=== PATIENT | female | born 1990 | race Caucasian/White ===

== ENCOUNTER 2022-12-17 12:46 | Outpatient (CLI) | payer BC, SELFPAY ==
--- NOTE | ~2022-12-17 | US_ITS ---
EXAMINATION: US OB /maternal detail DATE: 12/17/2022 13:29 INDICATION: Second trimester anatomic survey TECHNIQUE: Real-time ultrasound of the pelvis was performed. COMPARISON: None. FINDINGS: There is a single living fetus in vertex presentation. The placenta is anterior and 4.3 cm from the i nternal cervical os. The cervical length is 3.1 cm. heart rate is 54 beats per minute (bpm). F etal cardiac activity and movement are noted. The amniotic fluid index is subjectively normal. The outflow tracts the heart and intracranial anatomy are not well visualized. The following an atomy was identified as normal: 4 chamber heart 3 vessel cord cord insertion kidneys urinary bladder stomach spine diaphragm ventricles cisterna magna cerebellum The following biometric data were obtained: Biparietal diameter (BPD): 4.9 cm; head circumference (HC): 17.9 cm; abdominal circumference (AC): 15 .7 cm; femur length (FL): 3.7 cm. These measurements are concordant. Estimated weight is 406 g +/- 61 g, which correlates with the 97th percentile when 05/06/2023 is used as estimated date of delivery. As single measurements, these parameters are each equal to the following estimated gestational ages w ith ranges of +/- 2 standard deviations: BPD: 20 weeks 5 days ( 19 weeks 0 days - 22 weeks 3 days). HC: 20 weeks 3 days ( 18 weeks 6 days - 21 weeks 6 days). AC: 20 weeks 6 days ( 18 weeks 5 days - 22 weeks 6 days). FL: 21 weeks 6 days ( 20 weeks 1 days - 23 weeks 5 days). estimated gestational age based solely on measurements from this exam is 21 weeks 0 days +/- 1 weeks 3 days. IMPRESSION: 1. Single living fetus in vertex presentation. 2. Estimated weight is 406 g +/- 61 g, which correlates with the 97th percentile when 05/06/2023 is used as estimated date of delivery. 3. Outflow tracts of the heart and intracranial anatomy not well visualized. Reviewed, dictated and finalized at location F. ER DISTILLERY IMPRESSION: 1. Single living fetus in vertex presentation. 2. Estimated weight is 406 g +/- 61 g, which correlates with the 97th per centile when 05/06/2023 is used as estimated date of delivery. 3. Outflow tracts of the heart and intracranial anatomy not well visualized.
== END 2022-12-17 12:47 ==
PROVIDERS: PCP Family Medicine; Visit Provider Obstetrics & Gynecology Gynecology
DX: Z36.9 Encounter for antenatal screening, unspecified (principal); Z3A.21 21 weeks gestation of pregnancy
CPT/HCPCS: 76805

== ENCOUNTER 2023-01-27 09:41 | Outpatient (CLI) | payer BC, SELFPAY ==
--- NOTE | ~2023-01-27 | US_ITS ---
EXAMINATION: US OB follow up DATE: 01/27/2023 10:27 INDICATION: Incomplete anatomic survey. TECHNIQUE: Real-time ultrasound of the pelvis was performed. COMPARISON: Ultrasound 12/17/2022 FINDINGS: There is a single living fetus in breech presentation. The placenta is anterior, 7.1 cm from the cer vix. heart rate is 133 beats per minute (bpm). The amniotic fluid volume is subjectively normal . The following biometric data were obtained: Biparietal diameter (BPD): 6.7 cm; head circumference (HC): 24.7 cm; abdominal circumference (AC): 22 .6 cm; femur length (FL): 4.9 cm. These measurements are concordant. Estimated weight is 975 g +/- 146 g, which correlates with the 33rd percentile when 04/29/23 is u sed as estimated date of delivery. As single measurements, these parameters are each equal to the following estimated gestational ages: BPD: 26 weeks 6 days. HC: 26 weeks 5 days. AC: 27 weeks 0 days. FL: 26 weeks 2 days. estimated gestational age based solely on measurements from this exam is 26 weeks 5 days +/- 1 weeks 6 days. The cerebral ventricles, cerebellum, cisterna magna, and heart are normal. IMPRESSION: 1. Single living fetus in breech presentation. 2. Estimated weight is 975 g +/- 146 g, which correlates with the 33rd percentile when 04/29/23 is used as estimated date of delivery. 3. Normal anatomic survey of the head and heart. Reviewed, dictated and finalized at location A. ING ELEMENT WINDER IMPRESSION: 1. Single living fetus in breech presentation. 2. Estimated weight is 975 g +/- 146 g, which correlates with the 33rd p ercentile when 04/29/23 is used as estimated date of delivery. 3. Normal anatomic survey of the head and heart.
== END 2023-01-27 09:42 ==
LOC: MICIMG 09:42
PROVIDERS: PCP Family Medicine; Visit Provider Obstetrics & Gynecology Gynecology
DX: Z36.9 Encounter for antenatal screening, unspecified (principal); Z3A.26 26 weeks gestation of pregnancy
CPT/HCPCS: 76816

== ENCOUNTER 2023-02-23 11:06 | Outpatient (CLI) | payer BC, SELFPAY ==
[2023-02-23] VITALS (7 sets, daily range): BP systolic 91–113; BP diastolic 33–81; PULSE 78–88; RESP 18; TEMP 37.1
[2023-02-23 11:46] LABS: Appearance Urine Cloudy (Clear); Bacteria Urine Rare /hpf; Bilirubin Urine Negative (Negative); Blood Urine Negative (Negative); Color Urine Yellow (Yellow); Glucose Urine UA Negative (Negative); Ketones Urine Negative (Negative); Leukocyte Esterase Ur 1+ LEU/UL (NEGATIVE); Nitrate Urine Negative (Negative); Non Pathogenic Casts 0-2; Protein Urine Negative (Negative); RBC Urine 0-2 /hpf (0-2); Specific Grav Ur 1.015 (1.001-1.035); Squamous Epithelial Cell Urine Many /hpf (Few); pH Urine 7.5 (5.0-9.0)
[2023-02-23 11:52] LABS: Add Urine Microscopic? YES
[2023-02-23 11:54] LABS: Basophils Percent Auto 0.2 % (0.2-1.2); Eosinophils Absolute Auto 0.3 K/mm3 (0-0.3); Eosinophils Percent Auto 3.2 % (0-4.4); Hematocrit 33.8 % (37.0-47.0); Hemoglobin 10.9 g/dL (12.0-15.0); Immature Granulocyte Absolute 0.04 K/mm3 (0.00-0.031); Immature Granulocyte Percent A 0.4 % (0-0.5); Lymphocytes Percent Auto 13.1 % (18.3-44.2); Mean Corpuscular HGB Conc 32.2 g/dl (32-36); Mean Corpuscular Hemoglobin 27.9 pg (26-34); Mean Corpuscular Volume 86.4 fl (80-100); Mean Platelet Volume 10.5 fl (7.4-10.4); Monocytes Absolute Auto 0.4 K/mm3 (0.1-0.6); Monocytes Percent Auto 3.7 % (2.6-8.5); Neutrophils Absolute Auto 7.9 K/mm3 (1.3-6.7); Neutrophils Percent Auto 79.4 % (45.5-73.1); Platelet Count Result 202 k/mm3 (150-375); Red Blood Count 3.91 M/mm3 (4.2-5.4); Red Cell Distribution Width 14.3 % (11.5-14.5)
[2023-02-23 11:57] LABS: Alanine Aminotransferase 17 U/L (6-35); Albumin Level 3.7 g/dL (3.5-5.1); Alkaline Phosphatase 106 U/L (38-126); Anion Gap 4 mmol/L (8-16); Aspartate Amino Transferase 16 U/L (14-36); Bilirubin,Total 0.5 mg/dL (0.2-1.3); Blood Urea Nitrogen 4 mg/dL (7-17); Calcium 8.5 mg/dL (8.4-10.2); Carbon Dioxide 23 mmol/L (22-30); Chloride 107 mmol/L (98-107); Estimated Glomerular Filt Rate > 60; Glucose 78 mg/dL (65-110); Potassium 3.8 mmol/L (3.4-5.0); Sodium 134 mmol/L (137-145); Uric Acid 3.3 mg/dL (2.5-7.5)
[2023-02-23 11:58] LABS: Creatinine Urine 131.3 mg/dL; Total Protein Urine Random 6 mg/dL; Ur Ttl Prot Creatinine Ratio 0.05 mg/mg (0-0.20)
--- NOTE | 2023-02-23 12:45 | PC.NURSE ---
Pt sent home with 24hr urine supplies and instructions.
== END 2023-02-23 13:43 | disposition home or self-care (01) ==
LOC: ANHLAB 11:09 → ANHOBPP 11:09
PROVIDERS: PCP Family Medicine; Visit Provider Obstetrics & Gynecology Gynecology
DX: O13.9 Gestational [pregnancy-induced] hypertension without significant proteinuria, unspecified trimester (principal); Z3A.00 Weeks of gestation of pregnancy not specified
CPT/HCPCS: 36415; 59025; 80053; 81001; 82570; 84156; 84550; 85025; 87086; 99199

== ENCOUNTER 2023-02-24 15:30 | Outpatient (NON) | payer BC, SELFPAY ==
[2023-02-24 16:05] LABS: Collection Time Urine 24 HOURS
[2023-02-24 16:24] LABS: Total Volume 24 Hour Urine 2300 ml
[2023-02-24 16:25] LABS: Patient Weight 331 Lbs
[2023-02-24 16:34] LABS: Creatinine Urine 88.6 mg/dL
[2023-02-24 16:39] LABS: Total Protein Urine 24 Hr 115 mg/24hr (28-141); Total Protein Urine Random < 5 mg/dL
== END 2023-02-24 15:31 | disposition home or self-care (01) ==
LOC: ANHOBOP 15:41
PROVIDERS: PCP Family Medicine; Visit Provider Obstetrics & Gynecology Gynecology
DX: Z34.90 Encounter for supervision of normal pregnancy, unspecified, unspecified trimester (principal)
CPT/HCPCS: 81050; 82575; 84156

== ENCOUNTER 2023-02-28 19:38 | Observation (INO) | payer BC, SELFPAY ==
[2023-02-28 20:16] VITALS: BP 120/68; PULSE 88
[2023-02-28 20:31] VITALS: BP 120/73; PULSE 80
[2023-02-28 20:46] VITALS: BP 116/73; PULSE 81
[2023-02-28 21:12] LABS: Basophils Percent Auto 0.3 % (0.2-1.2); Eosinophils Absolute Auto 0.3 K/mm3 (0-0.3); Eosinophils Percent Auto 3.1 % (0-4.4); Hematocrit 33.6 % (37.0-47.0); Hemoglobin 10.8 g/dL (12.0-15.0); Immature Granulocyte Absolute 0.08 K/mm3 (0.00-0.031); Immature Granulocyte Percent A 0.8 % (0-0.5); Lymphocytes Absolute Auto 1.53 K/mm3 (0.9-3.2); Lymphocytes Percent Auto 14.8 % (18.3-44.2); Mean Corpuscular HGB Conc 32.1 g/dl (32-36); Mean Corpuscular Hemoglobin 28.4 pg (26-34); Mean Corpuscular Volume 88.4 fl (80-100); Mean Platelet Volume 10.4 fl (7.4-10.4); Monocytes Absolute Auto 0.6 K/mm3 (0.1-0.6); Monocytes Percent Auto 5.7 % (2.6-8.5); Neutrophils Absolute Auto 7.8 K/mm3 (1.3-6.7); Neutrophils Percent Auto 75.3 % (45.5-73.1); Platelet Count Result 187 k/mm3 (150-375); Red Cell Distribution Width 14.2 % (11.5-14.5); White Blood Count 10.3 K/mm3 (4.5-10.0)
[2023-02-28 21:14] LABS: Appearance Urine Clear (Clear); Bilirubin Urine Negative (Negative); Blood Urine Negative (Negative); Color Urine Yellow (Yellow); Glucose Urine UA Negative (Negative); Ketones Urine Negative (Negative); Leukocyte Esterase Ur Negative LEU/UL (NEGATIVE); Nitrate Urine Negative (Negative); Protein Urine Negative (Negative); Specific Grav Ur 1.006 (1.001-1.035); Urobilinogen Urine 0.2 mg/dL (<2.0)
[2023-02-28 21:20] LABS: Creatinine Urine 44.2 mg/dL; Total Protein Urine Random 12 mg/dL; Ur Ttl Prot Creatinine Ratio 0.27 mg/mg (0-0.20)
[2023-02-28 21:22] LABS: Add Urine Microscopic? NO; Alanine Aminotransferase 18 U/L (6-35); Albumin Level 3.4 g/dL (3.5-5.1); Alkaline Phosphatase 92 U/L (38-126); Anion Gap 7 mmol/L (8-16); Aspartate Amino Transferase 15 U/L (14-36); Bilirubin,Total 0.4 mg/dL (0.2-1.3); Blood Urea Nitrogen 5 mg/dL (7-17); Calcium 8.1 mg/dL (8.4-10.2); Carbon Dioxide 22 mmol/L (22-30); Chloride 105 mmol/L (98-107); Estimated Glomerular Filt Rate > 60; Glucose 79 mg/dL (65-110); Potassium 3.8 mmol/L (3.4-5.0); Sodium 134 mmol/L (137-145); Uric Acid 3.3 mg/dL (2.5-7.5)
--- NOTE | 2023-03-07 09:57 | PM.OBTRLD ---
OB - Triage/Final Diagnosis Visit Information Reason for evaluation: other ( -induced hypertension; headache) Comments/Additional reasons for admission: I have assessed the risk for this patient, Aurea Jennings, and determined that she would benefit from observation care. Evaluation Laboratory results: Laboratory Tests 02/28/23 02/28/23 02/28/23 20:52 20:52 20:52 WBC 10.3 H RBC 3.80 L Hgb 10.8 L Hct 33.6 L MCV 88.4 MCH 28.4 MCHC 32.1 RDW 14.2 Plt Count 187 MPV 10.4 Immature Gran % (Auto) 0.8 H Neut % (Auto) 75.3 H Lymph % (Auto) 14.8 L [place] % (Auto) 5.7 Eos % (Auto) 3.1 Baso % (Auto) 0.3 Lymph # (Auto) 1.53 [place] # (Auto) 0.6 Eos # (Auto) 0.3 Baso # (Auto) 0.0 Abs Immat Gran (auto) 0.08 H Absolute Neuts (auto) 7.8 H Absolute Nucleated RBC 0.0 Nucleated RBC % 0.0 Sodium Potassium Chloride Carbon Dioxide Anion Gap BUN Creatinine Estim Creat Clear Calc Estimated GFR Glucose Uric Acid Calcium Total Bilirubin AST ALT Alkaline Phosphatase Total Protein Albumin Urine Color Yellow Urine Appearance Clear Urine pH 7.0 Ur Specific [place] 1.006 Urine Protein Negative Urine Glucose (UA) Negative Urine Ketones Negative Ur Blood (Man) Negative Urine Nitrate Negative Urine Bilirubin Negative Urine Urobilinogen 0.2 Ur Leukocyte Esterase Negative U Random Total Protein 12 Urine Creatinine 44.2 Protein/Creat Ratio 2 0.27 H 02/28/23 20:52 WBC RBC Hgb Hct MCV MCH MCHC RDW Plt Count MPV Immature Gran % (Auto) Neut % (Auto) Lymph % (Auto) [place] % (Auto) Eos % (Auto) Baso % (Auto) Lymph # (Auto) [place] # (Auto) Eos # (Auto) Baso # (Auto) Abs Immat Gran (auto) Absolute Neuts (auto) Absolute Nucleated RBC Nucleated RBC % Sodium 134 L Potassium 3.8 Chloride 105 Carbon Dioxide 22 Anion Gap 7 L BUN 5 L Creatinine 0.50 L Estim Creat Clear Calc Not Reportable Estimated GFR > 60 Glucose 79 Uric Acid 3.3 Calcium 8.1 L Total Bilirubin 0.4 AST 15 ALT 18 Alkaline Phosphatase 92 Total Protein 7.0 Albumin 3.4 L Urine Color Urine Appearance Urine pH Ur Specific [place] Urine Protein Urine Glucose (UA) Urine Ketones Ur Blood (Man) Urine Nitrate Urine Bilirubin Urine Urobilinogen Ur Leukocyte Esterase U Random Total Protein Urine Creatinine Protein/Creat Ratio 2
== END 2023-02-28 21:44 | disposition home or self-care (01) ==
PROVIDERS: Admitting Provider Obstetrics & Gynecology Gynecology; PCP Family Medicine; Visit Provider Obstetrics & Gynecology Gynecology
DX: O13.3 Gestational [pregnancy-induced] hypertension without significant proteinuria, third trimester (principal); O26.893 Other specified pregnancy related conditions, third trimester; R51.9 Headache, unspecified; Z3A.30 30 weeks gestation of pregnancy
CPT/HCPCS: 36415; 59025; 80053; 81003; 82570; 84156; 84550; 85025; 87086; 87088; 87147; G0378

== ENCOUNTER → 2023-03-09 12:53 | Outpatient (CLI) | payer BC, SELFPAY ==
--- NOTE | ~2023-03-09 | US_ITS ---
EXAMINATION: US OB follow up DATE: 03/09/2023 13:36 INDICATION: Gestational size greater than dates TECHNIQUE: Real-time transabdominal obstetric ultrasound. FINDINGS: Comparison to multiple prior studies sequentially, with oldest reviewed study dated 023. There is a single living fetus in vertex presentation. The placenta is anterior without placenta pre via. cardiac activity and movement is noted with a heart rate of 151 beats per minute. T he amniotic fluid volume is below normal limits. GISELL measures 6.8 cm (normal range for gestational ag e is 8.6-24.2 cm) The following biometric data were obtained: BPD: 77mm corresponds to gestational age 31 weeks 0 days. Head circumference: 282mm corresponds to gestational age 30 weeks 6 days. Abdominal circumference: 285mm corresponds to gestational age 32 weeks 3 days. Femur length: 62mm corresponds to gestational age 32 weeks 2 days. Estimated weight: 1907grams +/- 286grams, 23.2%.] IMPRESSION: 1. Single living intrauterine in vertex presentation with an estimated gestational age of 32 weeks 5 days by inititial ultrasound. Appropriate interval growth. 2. Normal placenta. 3: Oligohydramnios. GISELL measures 6.8 cm. Reviewed, dictated and finalized at location A. IMPRESSION: 1. Single living intrauterine in vertex presentation with an estimat ed gestational age of 32 weeks 5 days by inititial ultrasound. Appropriate int erval growth. 2. Normal placenta. 3: Oligohydramnios. GISELL measures 6.8 cm.
== END ==
PROVIDERS: PCP Obstetrics & Gynecology Gynecology; Visit Provider Obstetrics & Gynecology Gynecology
DX: O36.63X0 Maternal care for excessive fetal growth, third trimester, not applicable or unspecified (principal); Z3A.32 32 weeks gestation of pregnancy
CPT/HCPCS: 76816

== ENCOUNTER 2023-03-16 09:43 | Outpatient (CLI) | payer BC, SELFPAY ==
--- NOTE | ~2023-03-16 | US_ITS ---
EXAMINATION: 1. US OB limited 2. US umbilical doppler DATE: 03/16/2023 10:44 INDICATION: Third trimester . TECHNIQUE: Real-time ultrasound of the pelvis was performed. COMPARISON: Ultrasound 03/09/2023 FINDINGS: There is a single fetus in vertex presentation. The placenta is anterior. heart rate is 152 be ats per minute (bpm). The amniotic fluid index is 14.5 cm, which is normal. Umbilical artery pulsed Doppler demonstrates a peak systolic to end-diastolic velocity ratio (S/D rat io) of 2.6 (5th percentile = 2.11, 95th percentile = 3.67). IMPRESSION: 1. Single living fetus in vertex presentation. 2. Normal umbilical artery Doppler. Reviewed, dictated and finalized at location A. IMPRESSION: 1. Single living fetus in vertex presentation. 2. Normal umbilical artery Doppler.
== END 2023-03-16 09:44 ==
LOC: MICIMG 09:44
PROVIDERS: PCP Obstetrics & Gynecology Gynecology; Visit Provider Obstetrics & Gynecology Gynecology
DX: O36.63X0 Maternal care for excessive fetal growth, third trimester, not applicable or unspecified (principal); O41.03X0 Oligohydramnios, third trimester, not applicable or unspecified; Z3A.00 Weeks of gestation of pregnancy not specified
CPT/HCPCS: 76815; 76820

== ENCOUNTER 2023-03-24 13:54 | Outpatient (CLI) | payer BC, SELFPAY ==
--- NOTE | ~2023-03-24 | US_ITS ---
EXAMINATION: US OB follow up DATE: 03/24/2023 14:19 INDICATION: Estimated size greater than expected for estimated gestational age TECHNIQUE: Real-time ultrasound of the pelvis was performed. The interpreting radiologist was not pre sent for the study. COMPARISON: 03/18/2023 FINDINGS: There is a single living fetus in vertex presentation. motion was noted by the housing coordinator. The placenta is anterior and not low-lying. heart rate is 153 beats per minute (bpm). The amniotic fluid index is 10.3 cm, which is normal (5th%-95%: 8.1-24.8 cm at 34 weeks estimated gestational ag e). The following biometric data were obtained: BPD: 8.3 cm -> 33 weeks 2 days Head circumference: 30.4 cm -> 33 weeks 6 days Abdominal circumference: 30.3 cm -> 34 weeks 2 days Femur length: 6.3 cm -> 32 weeks 5 days These measurements are concordant. Head circumference to abdominal circumference ratio: 1.00 (normal range 0.95-1.11). Estimated weight: 2255 g (+/-) 338 g or 5 lbs. 0 oz. (+/-) 12 oz. IMPRESSION: 1. Single living fetus in vertex presentation with heart rate of 153 bpm. 2. Normal amniotic fluid index of 10.3 cm. 3. Estimated weight is 17th percentile by Hadlock criteria when 04/29/2023 is used as the estimat ed date of delivery (ADRIANA). Please correlate with clinical information or earlier ultrasounds for most accurate ADRIANA. Reviewed, dictated and finalized at location L. IMPRESSION: 1. Single living fetus in vertex presentation with heart rate of 153 bpm. 2. Normal amniotic fluid index of 10.3 cm. 3. Estimated weight is 17th percentile by Hadlock criteria when 04/29/2023 is used as the estimated date of delivery (ADRIANA). Please correlate with clinical information or earlier ultrasounds for most accurate ADRIANA.
== END 2023-03-24 13:55 ==
PROVIDERS: PCP Advanced Practice Midwife; Visit Provider Advanced Practice Midwife
DX: O36.63X0 Maternal care for excessive fetal growth, third trimester, not applicable or unspecified (principal); Z3A.00 Weeks of gestation of pregnancy not specified; O99.891 Other specified diseases and conditions complicating pregnancy
CPT/HCPCS: 76816

== ENCOUNTER 2023-04-13 18:00 | Observation (INO) | payer BC, SELFPAY ==
--- NOTE | ~2023-04-13 | US_ITS ---
EXAMINATION: US OB limited w BPP DATE: 04/13/2023 16:57 INDICATION: GISELL and BPP for hypertension TECHNIQUE: Real-time ultrasound of the pelvis was performed. COMPARISON: 03/24/2023. FINDINGS: There is a single living fetus in vertex presentation, longitudinal lie. The placenta is anterior. F etal heart rate is 151 beats per minute (bpm). The amniotic fluid index is 4.7 cm, which is low (5th to 95th percentile is 7.5 to 24.4 cm). macro biometrics Biophysical profile performed by the technologist: breathing (30 sec sustained breathing in 30 minutes): 2 out of 2 movement (3 gross body movements in 30 minutes: 2 out of 2 tone (one episode of umbaixp-sirnjhbau-nbcdrfz limb movement): 2 out of 2 Amniotic fluid pocket (2 cm): 2 out of 2 Total score: 8 out of 8 IMPRESSION: 1. Single living fetus in vertex presentation. 2. Oligohydramnios. 3. Biophysical profile 8 out of 8. 4. Estimated gestational age 37 weeks 5 days. Estimated date of delivery 04/29/2023. Reviewed, dictated and finalized at location K. IMPRESSION: 1. Single living fetus in vertex presentation. 2. Oligohydramnios. 3. Biophysical profile 8 out of 8. 4. Estimated gestational age 37 weeks 5 days. Estimated date of delivery 04/29/20 23.
--- NOTE | ~2023-04-13 | US_ITS ---
US OB limited 04/14/2023 09:03 Indication: Oligohydramnios Procedure: High-resolution Limited obstetrical ultrasound using transabdominal technique Comparison: 04/13/2023 Findings: There is a single living intrauterine in vertex presentation. Placenta is anterio r. GISELL is 6.7 cm (normal range for gestational age is 7.5-24.4 cm. heart rate is 150 BPM. Impression: 1: Oligohydramnios. GISELL measures 6.7 cm. Reviewed, dictated and finalized at location D. Impression: 1: Oligohydramnios. GISELL measures 6.7 cm.
[2023-04-13 16:33] LABS: Basophils Percent Auto 0.2 % (0.2-1.2); Eosinophils Absolute Auto 0.3 K/mm3 (0-0.3); Eosinophils Percent Auto 3.5 % (0-4.4); Hematocrit 35.6 % (37.0-47.0); Hemoglobin 11.6 g/dL (12.0-15.0); Immature Granulocyte Absolute 0.04 K/mm3 (0.00-0.031); Immature Granulocyte Percent A 0.4 % (0-0.5); Lymphocytes Absolute Auto 1.35 K/mm3 (0.9-3.2); Lymphocytes Percent Auto 14.2 % (18.3-44.2); Mean Corpuscular HGB Conc 32.6 g/dl (32-36); Mean Corpuscular Hemoglobin 27.8 pg (26-34); Mean Corpuscular Volume 85.4 fl (80-100); Mean Platelet Volume 10.6 fl (7.4-10.4); Monocytes Absolute Auto 0.4 K/mm3 (0.1-0.6); Monocytes Percent Auto 3.9 % (2.6-8.5); Neutrophils Absolute Auto 7.4 K/mm3 (1.3-6.7); Neutrophils Percent Auto 77.8 % (45.5-73.1); Platelet Count Result 203 k/mm3 (150-375); Red Blood Count 4.17 M/mm3 (4.2-5.4); Red Cell Distribution Width 14.5 % (11.5-14.5); White Blood Count 9.5 K/mm3 (4.5-10.0)
[2023-04-13 16:39] LABS: Appearance Urine Cloudy (Clear); Bacteria Urine None Seen /hpf; Bilirubin Urine Negative (Negative); Blood Urine Negative (Negative); Color Urine Yellow (Yellow); Glucose Urine UA Negative (Negative); Ketones Urine Negative (Negative); Leukocyte Esterase Ur 2+ LEU/UL (Negative); Nitrate Urine Negative (Negative); Non Pathogenic Casts 0-2; Protein Urine Negative (Negative); RBC Urine 0-2 /hpf (0-2); Specific Grav Ur 1.016 (1.001-1.035); Squamous Epithelial Cell Urine Moderate /hpf (Few); Urobilinogen Urine 0.2 mg/dL (<2.0); pH Urine 6.5 (5.0-9.0)
[2023-04-13 16:44] LABS: Add Urine Microscopic? YES
[2023-04-13 16:45] LABS: Alanine Aminotransferase 16 U/L (6-35); Albumin Level 3.6 g/dL (3.5-5.1); Alkaline Phosphatase 122 U/L (38-126); Anion Gap 10 mmol/L (8-16); Aspartate Amino Transferase 17 U/L (14-36); Bilirubin,Total 0.3 mg/dL (0.2-1.3); Blood Urea Nitrogen 6 mg/dL (7-17); Calcium 8.4 mg/dL (8.4-10.2); Carbon Dioxide 22 mmol/L (22-30); Chloride 103 mmol/L (98-107); Estimated Glomerular Filt Rate > 60; Glucose 92 mg/dL (65-110); Potassium 3.5 mmol/L (3.4-5.0); Sodium 135 mmol/L (137-145)
[2023-04-13 17:12] VITALS: BP 113/69; PULSE 78
[2023-04-13 17:15] VITALS: BP 116/81; PULSE 76
[2023-04-13 17:15] LABS: Creatinine Urine 156.8 mg/dL
[2023-04-13 17:31] VITALS: BP 109/73; PULSE 76
[2023-04-13 17:45] VITALS: BP 122/73; PULSE 73
--- NOTE | 2023-04-13 17:48 | PM.OBPNVD ---
OB - PN: Subj Subjective Date/time seen: 04/13/23 17:48 Interval history: NST reassuring. +accelerations and moderate variability. Some periods of minimal variability Patient comments: no complaints OB - PN: Obj Data Labs 04/13/23 16:22 04/13/23 16:22 Labs: Laboratory Results - last 24 hr 04/13/23 16:22 WBC 9.5 RBC 4.17 L Hgb 11.6 L Hct 35.6 L MCV 85.4 MCH 27.8 MCHC 32.6 RDW 14.5 Plt Count 203 MPV 10.6 H Immature Gran % (Auto) 0.4 Neut % (Auto) 77.8 H Lymph % (Auto) 14.2 L [place] % (Auto) 3.9 Eos % (Auto) 3.5 Baso % (Auto) 0.2 Lymph # (Auto) 1.35 [place] # (Auto) 0.4 Eos # (Auto) 0.3 Baso # (Auto) 0.0 Abs Immat Gran (auto) 0.04 H Absolute Neuts (auto) 7.4 H Absolute Nucleated RBC 0.0 Nucleated RBC % 0.0 Sodium 135 L Potassium 3.5 Chloride 103 Carbon Dioxide 22 Anion Gap 10 BUN 6 L Creatinine 0.50 L Estim Creat Clear Calc Not Reportable Estimated GFR > 60 Glucose 92 Uric Acid 4.0 Calcium 8.4 Total Bilirubin 0.3 AST 17 ALT 16 Alkaline Phosphatase 122 Total Protein 7.0 Albumin 3.6 Urine Color Yellow Urine Appearance Cloudy H Urine pH 6.5 Ur Specific [place] 1.016 Urine Protein Negative Urine Glucose (UA) Negative Urine Ketones Negative Ur Blood (Man) Negative Urine Nitrate Negative Urine Bilirubin Negative Urine Urobilinogen 0.2 Leukocyte Esterase Rfl 2+ H Urine RBC 0-2 Urine WBC 6-10 H Ur Squamous Epith Cells Moderate H Urine Bacteria None seen Urine Casts 0-2 Urine Creatinine 156.8 Imaging Radiologist's impression: Impressions Obstetrics US/Biophysical Profile 04/13/23 17:04 IMPRESSION: 1. Single living fetus in vertex presentation. 2. Oligohydramnios. 3. Biophysical profile 8 out of 8. 4. Estimated gestational age 37 weeks 5 days. Estimated date of delivery 04/29/2023. OB - PN A/P Assessment and Plan (1) Oligohydramnios in [place] in third trimester: Code(s): O41.03X0 - Oligohydramnios, third trimester, not applicable or unspecified Status: Acute (2) Gestational hypertension: Code(s): O13.9 - Gestational [-induced] hypertension without significant proteinuria, unspecified trimester Status: Acute Plan 32 y.o. G1PO at 36 week 5 days. gestational HTN- no severe range BPs. Oligohydramnios- GISELL 4.7cm by US today. Plan inpatient observation with IV hydration overnight. Plan repeat GISELL tomorrow. (Spoke with Dr. Edmonds in collaboration/consultation with plan of care) Time Spent With Patient Time: Total time spent is greater than 50% in coordination of care (as documented) at patient's floor/unit and/or counseling patient: Review of Systems Review of Systems: All systems reviewed & are unremarkable except as noted in HPI and below Exam Narrative: + movement. Denies regular contractions, vaginal bleeding, or ROM.
[2023-04-13 18:27] LABS: Total Protein Urine Random < 5 mg/dL
[2023-04-13 18:28] LABS: Ur Ttl Prot Creatinine Ratio < 0.03 mg/mg (0-0.20)
[2023-04-13 18:33] VITALS: BP 122/73; PULSE 88
[2023-04-13] MEDS: LACTATED RINGERS 1,000 ML 125 ML IV CONT (19:15)
[2023-04-13] MEDS: DEXTROSE 5%/LACTATED RINGERS 1,000 ML 125 ML IV CONT (19:15)
--- NOTE | 2023-04-14 07:29 | PC.NURSE ---
Pt awake. monitor applied for NST.
[2023-04-14 07:35] VITALS: PULSE 83; O2SAT 99
[2023-04-14 07:36] VITALS: BP 127/80; PULSE 76; PULSE 82; RESP 20; TEMP 36.6; O2SAT 100
[2023-04-14 08:12] VITALS: BP 128/82; PULSE 72
[2023-04-14 08:14] VITALS: BP 128/82; PULSE 72
--- NOTE | 2023-04-14 08:30 | PC.NURSE ---
Pt finished breakfast and then to U/S per wheelchair.
--- NOTE | 2023-04-14 09:29 | PC.NURSE ---
SVE -internal os is tight 1 cm, 50%, -3 station. Cervix is slightly posterior and starting to soften.
--- NOTE | 2023-04-14 09:34 | PC.NURSE ---
Dr. Edmonds informed GISELL 6.7 cm. Orders for discharge received.
--- NOTE | 2023-04-26 07:53 | PM.OBTRLD ---
OB - Triage/Final Diagnosis Visit Information Reason for evaluation: other (rule out preeclampsia) Comments/Additional reasons for admission: I have assessed the risk for this patient, Aurea Jennings, and determined that she would benefit from observation care. Evaluation Laboratory results: Laboratory Tests 04/13/23 04/13/23 16:22 19:02 WBC 9.5 RBC 4.17 L Hgb 11.6 L Hct 35.6 L MCV 85.4 MCH 27.8 MCHC 32.6 RDW 14.5 Plt Count 203 MPV 10.6 H Immature Gran % (Auto) 0.4 Neut % (Auto) 77.8 H Lymph % (Auto) 14.2 L [place] % (Auto) 3.9 Eos % (Auto) 3.5 Baso % (Auto) 0.2 Lymph # (Auto) 1.35 [place] # (Auto) 0.4 Eos # (Auto) 0.3 Baso # (Auto) 0.0 Abs Immat Gran (auto) 0.04 H Absolute Neuts (auto) 7.4 H Absolute Nucleated RBC 0.0 Nucleated RBC % 0.0 Sodium 135 L Potassium 3.5 Chloride 103 Carbon Dioxide 22 Anion Gap 10 BUN 6 L Creatinine 0.50 L Estim Creat Clear Calc Not Reportable Estimated GFR > 60 Glucose 92 Uric Acid 4.0 Calcium 8.4 Total Bilirubin 0.3 AST 17 ALT 16 Alkaline Phosphatase 122 Total Protein 7.0 Albumin 3.6 Urine Color Yellow Urine Appearance Cloudy H Urine pH 6.5 Ur Specific [place] 1.016 Urine Protein Negative Urine Glucose (UA) Negative Urine Ketones Negative Ur Blood (Man) Negative Urine Nitrate Negative Urine Bilirubin Negative Urine Urobilinogen 0.2 Leukocyte Esterase Rfl 2+ H Urine RBC 0-2 Urine WBC 6-10 H Ur Squamous Epith Cells Moderate H Urine Bacteria None seen Urine Casts 0-2 U Random Total Protein < 5 Urine Creatinine 156.8 Protein/Creat Ratio 2 < 0.03 Blood Type O Positive Antibody Screen Negative
== END 2023-04-14 10:30 | disposition home or self-care (01) ==
LOC: ANHOBOP 18:22 → ANHOBPP 04-14 10:01
PROVIDERS: Admitting Provider Obstetrics & Gynecology Gynecology; PCP Advanced Practice Midwife; Visit Provider Advanced Practice Midwife
DX: O41.03 Oligohydramnios, third trimester (principal); O13.3 Gestational [pregnancy-induced] hypertension without significant proteinuria, third trimester; Z3A.37 37 weeks gestation of pregnancy
CPT/HCPCS: 36415; 59025; 76815; 76819; 80053; 81001; 82570; 84156; 84550; 85025; 86850; 86900; 86901; 87086; 87088; 87147; G0378; G0379; J7120; J7121

== ENCOUNTER 2023-04-18 09:47 | Outpatient (RCR) | payer BC, SELFPAY ==
[2023-03-18 11:31] VITALS: BP 113/69; PULSE 93
[2023-03-26 11:00] VITALS: BP 117/67; PULSE 86
[2023-04-17 11:42] VITALS: BP 134/75
--- NOTE | ~2023-04-18 | US_ITS ---
EXAMINATION: US OB BPP wo non-stress DATE: 03/18/2023 11:06 INDICATION: Nonreactive nonstress test, third trimester TECHNIQUE: Real-time pelvic ultrasound was performed. The interpreting radiologist was not present fo r the study. COMPARISON: None. FINDINGS: There is a single living fetus in vertex presentation. The placenta is anterior. heart rate is 154 beats per minute (bpm). Biophysical profile performed by the technologist: breathing (30 sec sustained breathing in 30 minutes): 2 out of 2 movement (3 gross body movements in 30 minutes): 2 out of 2 tone (one episode of wsvpcmf-wxrpvgsbq-gwuhryn limb movement): 2 out of 2 Amniotic fluid pocket (2 cm): 2 out of 2 Total score: 8 out of 8 IMPRESSION: 1. Single living fetus in vertex presentation. 2. Biophysical profile 8 out of 8. Reviewed, dictated and finalized at location B.
[2023-04-18 11:53] VITALS: BP 115/66; PULSE 91
== END 2023-04-22 17:44 | disposition home or self-care (01) ==
LOC: ANHOBOP 09:47
PROVIDERS: PCP Obstetrics & Gynecology Gynecology; Visit Provider Obstetrics & Gynecology Gynecology
DX: O26.893 Other specified pregnancy related conditions, third trimester (principal); Z3A.35 35 weeks gestation of pregnancy; R03.0 Elevated blood-pressure reading, without diagnosis of hypertension; Z3A.36 36 weeks gestation of pregnancy; O41.03X0 Oligohydramnios, third trimester, not applicable or unspecified; Z3A.37 37 weeks gestation of pregnancy
CPT/HCPCS: 59025; 76819

== ENCOUNTER 2023-04-20 15:29 | Inpatient (IN) | payer BC, SELFPAY ==
[2023-04-20] VITALS (11 sets, daily range): BP systolic 114–131; BP diastolic 62–91; PULSE 89–156; BMI 48.6
--- NOTE | ~2023-04-20 | US_ITS ---
EXAMINATION: US OB limited DATE: 04/20/2023 17:00 INDICATION: GISELL, presentation. TECHNIQUE: Real-time ultrasound of the pelvis was performed. COMPARISON: 04/14/2023. FINDINGS: There is a single living fetus in vertex presentation, longitudinal lie. The placenta is anterior. F etal heart rate is 145 beats per minute (bpm). The amniotic fluid index is 3.0 cm, which is low (5th to 95th percentile is 7.3 to 23.9 cm). IMPRESSION: 1. Single living fetus in vertex presentation. 2. Oligohydramnios. Reviewed, dictated and finalized at location K.
[2023-04-20 16:02] LABS: Basophils Percent Auto 0.2 % (0.2-1.2); Eosinophils Absolute Auto 0.4 K/mm3 (0-0.3); Eosinophils Percent Auto 2.8 % (0-4.4); Hematocrit 35.6 % (37.0-47.0); Hemoglobin 11.4 g/dL (12.0-15.0); Immature Granulocyte Absolute 0.06 K/mm3 (0.00-0.031); Immature Granulocyte Percent A 0.5 % (0-0.5); Lymphocytes Absolute Auto 1.32 K/mm3 (0.9-3.2); Lymphocytes Percent Auto 10.6 % (18.3-44.2); Mean Corpuscular Hemoglobin 27.8 pg (26-34); Mean Corpuscular Volume 86.8 fl (80-100); Mean Platelet Volume 10.6 fl (7.4-10.4); Monocytes Absolute Auto 0.6 K/mm3 (0.1-0.6); Monocytes Percent Auto 4.7 % (2.6-8.5); Neutrophils Absolute Auto 10.1 K/mm3 (1.3-6.7); Neutrophils Percent Auto 81.2 % (45.5-73.1); Platelet Count Result 209 k/mm3 (150-375); Red Cell Distribution Width 14.6 % (11.5-14.5); White Blood Count 12.4 K/mm3 (4.5-10.0)
[2023-04-20 16:07] LABS: Alanine Aminotransferase 16 U/L (6-35); Albumin Level 3.6 g/dL (3.5-5.1); Alkaline Phosphatase 120 U/L (38-126); Anion Gap 5 mmol/L (8-16); Aspartate Amino Transferase 17 U/L (14-36); Bilirubin,Total 0.3 mg/dL (0.2-1.3); Blood Urea Nitrogen 9 mg/dL (7-17); Carbon Dioxide 24 mmol/L (22-30); Chloride 107 mmol/L (98-107); Estimated Glomerular Filt Rate > 60; Glucose 83 mg/dL (65-110); Potassium 3.8 mmol/L (3.4-5.0); Sodium 136 mmol/L (137-145); Uric Acid 4.4 mg/dL (2.5-7.5)
[2023-04-20 16:26] LABS: Creatinine Urine 277.5 mg/dL
[2023-04-20 16:27] LABS: Add Urine Microscopic? YES; Appearance Urine Cloudy (Clear); Bacteria Urine None Seen /hpf; Bilirubin Urine 1+ (Negative); Blood Urine Negative (Negative); Color Urine Dark Yellow (Yellow); Glucose Urine UA Negative (Negative); Ketones Urine Trace mg/dL (Negative); Leukocyte Esterase Ur 2+ LEU/UL (NEGATIVE); Need Manual Microscopic Reviewed; Nitrate Urine Negative (Negative); Non Pathogenic Casts 0-2; Protein Urine Trace mg/dL (Negative); RBC Urine 0-2 /hpf (0-2); Specific Grav Ur 1.028 (1.001-1.035); Squamous Epithelial Cell Urine Moderate /hpf (Few); WBC Urine 0-5 /hpf (0-3); pH Urine 6.5 (5.0-9.0)
[2023-04-20 16:34] LABS: Total Protein Urine Random < 5 mg/dL; Ur Ttl Prot Creatinine Ratio < 0.02 mg/mg (0-0.20)
--- NOTE | 2023-04-20 18:17 | LDADM ---
This patient, Aurea Jennings, was admitted to Labor/Delivery/Recovery 109 on 04/20/23 at 15:29. Plans for labor, pain management and were discussed with patient. Patient/family oriented to hospital policies and general routines including ID bracelet, bed and alarms, visiting hours, pain management, procedures, bathroom and other care routines, personal items, smoking policy, room service/diet and guest tray routines, infant security routines, and visiting hours. Patient/Family are encouraged to report perceived risks to care and to ask questions if they do not understand what they are told or what they should do. See OBIX for further documentation.
--- NOTE | 2023-04-20 18:18 | WPDANESEPPF ---
Anes - Initial Pre Proc Eval Procedure: Labor epidural Date/Time: 04/20/23 18:18 Surgeon: Demetria Rivera CNM Pre Op Diagnosis: Labor pain Pre Op Diagnosis: pih labs Patient Data Age: 32 Gender: F Height: Weight: Last Vital Signs Pulse 95 04/20/23 16:50 BP 117/69 04/20/23 16:50 Allergies Allergy/AdvReac Type Severity Reaction Status Date / Time No Known Allergies Allergy Unverified 10/20/22 12:07 Home Medications Medication Instructions Recorded Confirmed Type nifedipine 30 mg tablet,extended 30 mg PO DAILY 04/13/23 04/17/23 History release 24 hr (Procardia XL) vit no.95-ferrous 1 tablet PO HS 04/13/23 04/17/23 History fumarate 28 mg-folic acid 800 mcg tablet () Laboratory Tests 04/20/23 04/20/23 15:45 17:49 WBC 12.4 H K/mm3 (4.5-10.0) RBC 4.10 L M/mm3 (4.2-5.4) Hgb 11.4 L g/dL (12.0-15.0) Hct 35.6 L % (37.0-47.0) MCV 86.8 fl (80-100) MCH 27.8 pg (26-34) MCHC 32.0 g/dl (32-36) RDW 14.6 H % (11.5-14.5) Plt Count 209 k/mm3 (150-375) MPV 10.6 H fl (7.4-10.4) Immature Gran % (Auto) 0.5 % (0-0.5) Neut % (Auto) 81.2 H % (45.5-73.1) Lymph % (Auto) 10.6 L % (18.3-44.2) [place] % (Auto) 4.7 % (2.6-8.5) Eos % (Auto) 2.8 % (0-4.4) Baso % (Auto) 0.2 % (0.2-1.2) Lymph # (Auto) 1.32 K/mm3 (0.9-3.2) [place] # (Auto) 0.6 K/mm3 (0.1-0.6) Eos # (Auto) 0.4 H K/mm3 (0-0.3) Baso # (Auto) 0.0 K/mm3 (0.0-0.1) Abs Immat Gran (auto) 0.06 H K/mm3 (0.00-0.031) Absolute Neuts (auto) 10.1 H K/mm3 (1.3-6.7) Absolute Nucleated RBC 0.0 K/mm3 (0.0-0.012) Nucleated RBC % 0.0 % (0.0-0.2) Sodium 136 L mmol/L (137-145) Potassium 3.8 mmol/L (3.4-5.0) Chloride 107 mmol/L (98-107) Carbon Dioxide 24 mmol/L (22-30) Anion Gap 5 L mmol/L (8-16) BUN 9 mg/dL (7-17) Creatinine 0.70 mg/dL (0.7-1.0) Estim Creat Clear Calc Not Reportable Estimated GFR > 60 (59 - ) Glucose 83 mg/dL (65-110) Uric Acid 4.4 mg/dL (2.5-7.5) Calcium 8.0 L mg/dL (8.4-10.2) Total Bilirubin 0.3 mg/dL (0.2-1.3) AST 17 U/L (14-36) ALT 16 U/L (6-35) Alkaline Phosphatase 120 U/L (38-126) Total Protein 7.0 g/dL (6.3-8.2) Albumin 3.6 g/dL (3.5-5.1) Urine Color Dark yellow (Yellow) Urine Appearance Cloudy H (Clear) Urine pH 6.5 (5.0-9.0) Ur Specific [place] 1.028 (1.001-1.035) Urine Protein Trace mg/dL (Negative) Urine Glucose (UA) Negative mg/dL (Negative) Urine Ketones Trace H mg/dL (Negative) Ur Blood (Man) Negative (Negative) Urine Nitrate Negative (Negative) Urine Bilirubin 1+ H (Negative) Urine Urobilinogen 1.0 mg/dL (<2.0) Ur Leukocyte Esterase 2+ H LAURI/UL (NEGATIVE) Add Ur Microanalysis Reviewed Urine RBC 0-2 /hpf (0-2) Urine WBC 0-5 /hpf (0-3) Ur Squamous Epith Cells Moderate /hpf (Few) Urine Bacteria None seen /hpf Urine Casts 0-2 U Random Total Protein < 5 mg/dL Urine Creatinine 277.5 mg/dL Protein/Creat Ratio 2 < 0.02 mg/mg (0-0.20) RPR Pending HIV 1&2 Ab/P24 Ag 4thGn Pending Patient hx anesthesia problems: none Family hx anesthesia problems: none Results Review: All pre-operative results and documents have been reviewed as part of the pre-operative evaluation. [facility] Past Medical History Medical History Atopic dermatitis Complains of low back pain Depression Encounter for general adult medical examination without abnormal findings External hemorrhoid Generalized abdominal pa
[2023-04-20] MEDS: DINOPROSTONE 10 MG VAG INSERT VAGINAL (18:26)
--- NOTE | 2023-04-20 18:30 | PC.NURSE ---
Bright light exam performed. No lesions noted. Patient denies having any pre-outbreak symptoms.
[2023-04-20 19:03] LABS: HIV 1/2 Ab P24 Ag Result Negative (Negative)
[2023-04-21] VITALS (228 sets, daily range): BP systolic 76–138; BP diastolic 37–112; PULSE 61–271; RESP 18–20; TEMP 36.6–37.4; O2SAT 96–100
[2023-04-21] MEDS: LACTATED RINGERS 1,000 ML 125 ML IV CONT ×3 (06:51→16:47)
[2023-04-21] MEDS: AMPICILLIN 2 GM/NS 100 ML 2 GM/100 ML BAG IVPB (06:51)
[2023-04-21] MEDS: OXYTOCIN 30 UNITS/NS 500 ML 30 UNITS/500 ML BAG IV CONT (06:52)
--- NOTE | 2023-04-21 07:37 | WPDOBADMIT ---
Obstetrics - Admit Note Admission Note: record reviewed. No pertinent additions to the history and/or any subsequent changes in the physical findings that are not consistent with the expected course of the were found. Additions to the history and/or subsequent changes in the physical findings follow. Here for MIL for oligohydramnios. Patient with cervadil last pm. Bright light exam negative and no symptoms of HSV. Cervix now 2/50/-2 soft and anterior. AROM with clear fluid. IUPC placed. FHTs category I. Continue pitocin.
[2023-04-21 09:58] LABS: Rapid Plasma Reagin Non-Reactive (NonReactive)
[2023-04-21] MEDS: AMPICILLIN 1 GM/NS 50 ML 1 GM/50 ML BAG IVPB ×3 (10:46→19:39)
[2023-04-21] MEDS: NIFEdipine 30 MG TAB.ER.24 PO (11:06)
[2023-04-21] MEDS: SODIUM CHLORIDE 0.9% IV 300 ML 600 ML I-UTERINE (12:12)
[2023-04-21] MEDS: ONDANSETRON INJ 4 MG/2 ML VIAL IV PUSH (19:39)
--- NOTE | 2023-04-21 21:19 | P.PCNOB_ITS ---
OB - Delivery Note Procedure Delivery date: 04/21/23 Procedure: Events: Gestational Hypertension and Oligohydramnios Induction method: AROM, Per Pitocin Protocol and Per Cervidil Protocol Delivery monitor: Internal FHT and Internal Uterine Route of delivery: Laceration Description: Perineal - 2nd Degree (RML) Delivery repair: vicryl (3-0) Specimen: Yes (placenta) Quantitative Blood Loss (ml): 250 Anesthesia type: Epidural Disposition: Floor [employer] Baby Date of : 04/21/23 Weeks of gestation at delivery: 38 gender: Female presentation: vertex position: Right Occiput Anterior Placenta delivery description: Spontaneous Cord Vessel Description: 3 Vessels (short cord) and Delayed Cord Clamping Narrative: nursery nurse left delivery room without announcing scores
--- NOTE | 2023-04-21 21:21 | PM.OBDSVD ---
DS: Admitting Diagnosis Discharge Date 04/23/23 Admitting Diagnosis IUP 38 wks Oligohydramnios Gestational Hypertension DS: Discharge Diagnosis Discharge Diagnosis (1) (normal spontaneous vaginal delivery): Code(s): O80 - Encounter for full-term uncomplicated delivery Status: Acute (2) Gestational hypertension: Code(s): O13.9 - Gestational [-induced] hypertension without significant proteinuria, unspecified trimester Status: Acute (3) Oligohydramnios in [place] in third trimester: Code(s): O41.03X0 - Oligohydramnios, third trimester, not applicable or unspecified Status: Acute OB - DS: Summary OB Procedures : NST, PIH Mgmt and Ultrasound OB Procedures Intrapartum: Spontaneous Vag Delivery OB Procedures: : None Peripartum Data Delivery Method: Natural Vaginal Laceration Description: Perineal - 2nd Degree (RML) complications: none Status at Discharge Functional status at discharge: independent ambulation Overall status at discharge: patient is progressing back to baseline Time Spent with Patient Time attestation: Total time spent providing and/or coordinating discharge services: DS: Data Data Completed and Pending Pending studies at discharge: Pending at discharge 04/21/23 21:10 Surgical [PTH] Routine Labs on day of discharge: Labs from last 24 hours 04/20/23 17:49 RPR Non-reactive Discharge Plan Discharge Attending physician on discharge: Mary Edmonds Discharging Clinician: Mary Edmonds Anticipated Discharge Date/Time: 04/23/23 21:22 Patient Disposition: Home, Self-Care Activity: may shower, may drive after 2 weeks and pelvic rest Diet: regular Patient Instructions: Antibiotic Form Stand Alone Forms: General Discharge Information Follow-up/Referrals: Mary Edmonds MD [Physician] - 6 Weeks Discharge Medications: Continued PNV [id number] [] 28 mg iron- 800 mcg Tablet 1 tablet PO HS Discontinued nifedipine [Procardia XL] 30 mg Tablet Extended Release 24hr 30 mg PO DAILY Date of admission: 04/20/23 15:29 Primary Care Provider: PHYSICIAN NOT ON STAFF,NONSTAFF Admitting Provider: Mary Edmonds Attending physician on admission: Demetria Rivera Condition: Stable Care Plan Goals: GRZEGORZ Escobar at 10 wks pp
[2023-04-21] MEDS: OXYTOCIN 30 UNITS/NS 500 ML 30 UNITS/500 ML BAG 125 UNITS IV CONT (21:41)
[2023-04-21] MEDS: BENZOCAINE 20% AER SPR (*SP) 56 GM CAN 1 SPRAY TOPICAL (22:35)
[2023-04-21] MEDS: WITCH HAZEL 40 PADS 1 PAD TOPICAL (22:35)
[2023-04-21] MEDS: IBUPROFEN 600 MG TABLET PO (22:35)
[2023-04-22 00:01] VITALS: BP 108/65; PULSE 70; RESP 18; TEMP 36.4; O2SAT 99
[2023-04-22 04:42] LABS: Hematocrit 31.2 % (37.0-47.0)
[2023-04-22 07:50] VITALS: BP 100/58; PULSE 70; PULSE 72; RESP 16; RESP 18; TEMP 36.7; O2SAT 99
[2023-04-22] MEDS: DOCUSATE SODIUM 100 MG CAPSULE PO ×2 (07:50→16:40)
[2023-04-22] MEDS: IBUPROFEN 600 MG TABLET PO ×2 (07:50→16:40)
--- NOTE | 2023-04-22 07:54 | PM.OBPNVD ---
OB - PN: Subj Subjective Date/time seen: 04/22/23 07:54 Patient comments: no complaints and pain well controlled baby status: doing well OB - PN: Obj Data Labs 04/22/23 03:50 04/20/23 15:45 Labs: Laboratory Results - last 24 hr 04/20/23 04/22/23 17:49 03:50 Hgb 10.0 L Hct 31.2 L RPR Non-reactive OB - PN A/P Plan day: 1 Plan: routine care Time Spent With Patient Time: Total time spent is greater than 50% in coordination of care (as documented) at patient's floor/unit and/or counseling patient: Exam : Bimanual exam- vagina & uterus: other (Uterus firm, nt @U)
[2023-04-22 12:30] VITALS: BP 117/67; PULSE 74; RESP 18; TEMP 36.6; O2SAT 99
--- NOTE | 2023-04-22 12:43 | WPDANLDPN2 ---
Anes-Prog Note L&D Date/Time: 04/22/23 12:43 Neuro status: Neuro function grossly intact. Cardiovascular status: normal Respiratory status: normal Airway patency: baseline Mental status: baseline Post-Op hydration status: normal Vital Signs: Last Vital Signs Temp 36.7 C 04/22/23 07:50 Pulse 72 04/22/23 07:50 Resp 16 04/22/23 07:50 BP 100/58 L 04/22/23 07:50 Pulse Ox 99 04/22/23 07:50 O2 Del Method Room Air 04/22/23 07:50 Pain score (VAS): 0 I/O: Intake & Output 04/21/23 04/22/23 04/22/23 23:59 07:59 15:59 Intake Total 2050 500 Output Total 70 Balance 1980 500 Post-procedural complaints: none Patient feedback: Patient satisfied with anesthetic care.
[2023-04-22 12:45] VITALS: PULSE 74; RESP 18; O2SAT 99
--- NOTE | 2023-04-22 16:55 | PC.NURSE ---
[id number] Introductions were made, then consulted with patient to assess needs related to . Mother led the conversation with her?plans to feed?her infant and the?experience so far. Mother works well with her with encouragement and education. Encouraged understanding of the benefits of skin to skin (demonstrating unwrapping and placing upright on her chest), stimulating with massage touch, changing positions to encourage wakefulness, how to watch for early feeding cues, responsive feeding, feeding on demand (aiming for 8-12 times in 24 hours, about every 2-3 hours), milk production, building/maintaining a milk supply, duration of feeding, signs of adequate intake/output and how to record on the feeding sheet. Reviewed positioning and ear, shoulder, hip alignment, supporting the breast to facilitate a deep latch, asymmetrical latch (off-center), leading with the chin with a big, open, wide gape and body close to mother. Reviewed good handwashing when or touching the breast/nipples to prevent infection. Mother was educated on the skill of hand expression and colostrum drops were finger fed to her infant. Infant did not demonstrate efforts to breastfeed at this time. Discussed the option of pumping to protect the milk supply, reviewed latching techniques with positioning waiting for the big, open, wide gape. Resources used to facilitate learning were used with the visual handouts/QR codes/ tool/mom and baby guide. Mother voiced understanding of skin to skin, stimulating with massage touch, responsive feedings, hand expressed colostrum, talking to infant to encourage if it has been 2 -2.5 hours since the start of the last , to call if infant does not latch, or if there is discomfort with . Resources provided for inpatient/outpatient with business card, feeding sheet and the mom/baby guide. Parents voiced understanding of information, demonstrated learning and will call if there is a request for assistance. Reported to primary RN.
[2023-04-22 17:32] VITALS: BP 121/78; PULSE 96; RESP 20; O2SAT 99
[2023-04-22 20:45] VITALS: BP 150/83; PULSE 93; RESP 16; TEMP 36.6; O2SAT 97
--- NOTE | 2023-04-23 05:40 | PM.OBPNVD ---
OB - PN: Subj Subjective Date/time seen: 04/23/23 05:40 Patient comments: no complaints and pain well controlled baby status: doing well OB - PN: Obj Data Labs 04/22/23 03:50 04/20/23 15:45 OB - PN A/P Assessment and Plan (1) Gestational hypertension: Code(s): O13.9 - Gestational [-induced] hypertension without significant proteinuria, unspecified trimester Status: Acute Assessment and Plan: BP ok off meds. Follow up with hospital pp in 1-2 days Plan day: 2 Plan: routine care, discharge home, follow up 6 weeks and other (plans IUD) Time Spent With Patient Time: Total time spent is greater than 50% in coordination of care (as documented) at patient's floor/unit and/or counseling patient: Exam : Bimanual exam- vagina & uterus: other (Uterus firm, nt @U)
[2023-04-23 08:40] VITALS: BP 111/55; PULSE 73; RESP 20; TEMP 36.8; O2SAT 99
[2023-04-23] MEDS: DOCUSATE SODIUM 100 MG CAPSULE PO (08:59)
[2023-04-23] MEDS: WITCH HAZEL 40 PADS 1 PAD TOPICAL (08:59)
[2023-04-23] MEDS: IBUPROFEN 600 MG TABLET PO (08:59)
[2023-04-25 10:31] VITALS: BP 124/89; PULSE 74; RESP 20; TEMP 36.3; O2SAT 100
== END 2023-04-23 13:10 | disposition home or self-care (01) | DRG 807 ==
LOC: ANHOBPP 15:47 → ANHOBOP 18:14 → ANHOBPP 18:14 → ANHLDR 04-21 21:23 → ANHOB2 04-23 10:47 → ANHLDR 04-25 14:16 → ANHOB2 04-25 14:16 → ANHOBPP 04-25 14:16
PROVIDERS: Advanced Practice Midwife; Admitting Provider Obstetrics & Gynecology Gynecology; Visit Provider Obstetrics & Gynecology Gynecology
DX: O41.03X0 Oligohydramnios, third trimester, not applicable or unspecified (principal); Z37.0 Single live birth; O70.1 Second degree perineal laceration during delivery; O69.3XX0 Labor and delivery complicated by short cord, not applicable or unspecified; Z3A.38 38 weeks gestation of pregnancy; O13.4 Gestational [pregnancy-induced] hypertension without significant proteinuria, complicating childbirth; O99.824 Streptococcus B carrier state complicating childbirth
CPT/HCPCS: 36415; 59025; 76815; 80053; 81001; 82570; 84156; 84550; 85014; 85018; 85025; 86592; 86703; 86850; 86900; 86901; 87086; 87088; 88307; 99199; A9270; G0432; J0290; J2405; J2590; J2795; J7030; J7120

== ENCOUNTER 2023-08-13 09:05 | Emergency (ER) | payer BC, SELFPAY ==
[2023-08-13 09:18] VITALS: BP 136/77; PULSE 82; RESP 18; TEMP 36.6; O2SAT 100
--- NOTE | 2023-08-13 09:19 | ECG_ITS ---
Measurements Intervals [place] Rate: 78 P: 34 CO: 181 QRS: 15 QRSD: 95 T: 9 QT: 381 QTc: 435 Interpretive Statements SINUS RHYTHM BASELINE ARTIFACT- I, II, III, AVR, AVL, AVF, V1-V3 NORMAL ECG NO PREVIOUS ECG AVAILABLE FOR COMPARISON Electronically Signed On 08-14-2023 6:53:57 CDT by Jose Alberto Krueger D.O.
--- NOTE | 2023-08-13 09:20 | ED.DIZZY ---
HPI - Dizziness General Chief Complaint: Dizziness Stated Complaint: dizzy Time Seen by Provider: 08/13/23 09:25 Source: patient, RN notes reviewed and old records reviewed Mode of arrival: ambulatory Limitations: no limitations History of Present Illness HPI Narrative: 32 year old female presents to [facility] care with complaints of having dizziness which started yesterday morning then went away but reoccurred after waking from a nap yesterday afternoon and then has continued.mainly with position changes. Patient reports that she has been having sinus congestion with some drainage, some ringing in her ears and just started back on her sinus medication 4-5 days ago. Patient denies any acute headache, nausea or vomiting or any chest pain or pressure. MD elicited complaint: dizziness and other (sinus congestion,ringing in ears) Pertinent past history: other (hearing loss, seasonal allergies) Onset (ago): day(s) (1) Timing: awoke with symptoms and intermittent Severity: moderate Exacerbating factors: change in body position Related Data Home Medications Medication Instructions Recorded Confirmed fexofenadine 180 mg tablet 180 mg PO DAILY 08/13/23 08/13/23 (Allergy Relief (fexofenadine)) Allergies Allergy/AdvReac Type Severity Reaction Status Date / Time No Known Allergies Allergy Verified 08/13/23 09:18 Review of Systems Review of Systems: CONSTITUTIONAL: Denies fever, chills, or sweats. EYES: Denies visual changes, redness, or discharge. ENT: Reports rhinorrhea, congestion,sinus pressure, no sore throat, or otalgia, has bilateral hearing loss CARDIOVASCULAR: Denies chest pain, palpitations, or edema. RESPIRATORY: Denies cough or dyspnea. GASTROINTESTINAL: Denies abdominal pain, nausea, vomiting, or diarrhea. GENITOURINARY: Denies dysuria or hematuria. SKIN: Denies rash or itching. MUSCULOSKELETAL: Denies back pain, joint pain, or myalgia. NEUROLOGIC: Denies headache, numbness, or weakness.intermittent dizziness since yesterday PSYCHIATRIC:Reports history of anxiety or depression. All systems reviewed & are unremarkable except as noted in HPI and below PMFSH Past Medical History Medical History (Updated 08/14/23 @ 08:50 by Brea Lemus NP) Atopic dermatitis Complains of low back pain Depression Encounter for general adult medical examination without abnormal findings External hemorrhoid Generalized abdominal pain (05/16/16) Gestational hypertension Seasonal allergies Family History Family History Grandparent Breast cancer Family history of rheumatoid arthritis Leukemia Prostate carcinoma Sibling Depression Mother Diabetes mellitus Hypertension Father Hypertension Social History Social History Smoking status: Never smoker Second hand tobacco smoke exposure: No Alcohol intake: current Alcohol use details: seldom; socially Substance use: never Substance use type: does not use Lack of Transportation: No Lack of Food: Never True Current Housing: I Have Housing Concerned About Future Housing: No Difficulty Paying Gas/Electric Bills: No Difficulty Paying for Meds: No Currently Unemployed: No Education: High School Diploma/GED Difficulty w/ Childcare or Family Care: No Spiritual care concerns: No Comments At time of signature, agree with nursing past medical, surgical, social and family history. There is no relevant family history pertinent to the presenting complaint Exam Narrative: GENERAL: Well-appearing, well-nourished,obese and in no acute distress. HEAD: Normocephalic, atraumatic. EYES: PERRLA and EOMI.no nystagmus ENT: Nares with some redness,clear rhinorrhea no epistaxis. Mucous membranes moist.TM's dull light reflex, throat pink with no lesions or tonsil swelling, post nasal drainage noted NECK: Supple. no lymphadenopathy CHEST: Clear
[2023-08-13 09:34] VITALS: BP 136/77; PULSE 82; RESP 18; TEMP 36.6; O2SAT 100
== END 2023-08-13 09:55 | disposition home or self-care (01) ==
PROVIDERS: Emergency Provider Registered Nurse; PCP Family Medicine
DX: J32.9 Chronic sinusitis, unspecified (principal); R42 Dizziness and giddiness
CPT/HCPCS: 93005; 99213; G0463

== ENCOUNTER 2024-07-02 09:27 | Emergency (ER) | payer BC, SELFPAY ==
[2024-07-02 09:37] VITALS: BP 138/73; PULSE 76; RESP 20; TEMP 36.4; O2SAT 100
--- NOTE | 2024-07-02 09:46 | ED.DIZZY ---
HPI - Dizziness General Chief Complaint: Dizziness Stated Complaint: Dizziness Time Seen by Provider: 07/02/24 10:00 Source: patient and RN notes reviewed Mode of arrival: ambulatory Limitations: no limitations History of Present Illness HPI Narrative: 33-year-old female presents with concern of for 3 week history of intermittent dizziness, sinus congestion and pressure, ear pressure. She reports she has had fluid in her ears before that cause similar symptoms. She denies any thunderclap headache, chest pain, shortness of breath. She denies fever, body aches, chills, sweats. She reports she has been taking an nose spray that was prescribed by her ENT MD elicited complaint: dizziness Related Data Allergies Allergy/AdvReac Type Severity Reaction Status Date / Time No Known Allergies Allergy Verified 07/02/24 09:35 Review of Systems Review of Systems: CONSTITUTIONAL: Denies malaise, chills, sweats, or fever. EYES: Denies visual changes, redness, or discharge. ENT: Reports rhinorrhea, congestion, sinus pain, otalgia CARDIOVASCULAR: Denies chest pain, palpitations, or edema. RESPIRATORY: Denies cough. Denies dyspnea. GASTROINTESTINAL: Denies abdominal pain, nausea, vomiting, diarrhea SKIN: Denies rash or itching. MUSCULOSKELETAL: Denies myalgia. NEUROLOGIC: Denies headache. Reports dizziness All systems reviewed & are unremarkable except as noted in HPI and below PMFSH Past Medical History Medical History (Updated 07/02/24 @ 10:08 by Peggy Valles NP) Atopic dermatitis Complains of low back pain Depression Encounter for general adult medical examination without abnormal findings External hemorrhoid Generalized abdominal pain (04/05/16) Gestational hypertension Seasonal allergies Family History Family History Grandparent Breast cancer Family history of rheumatoid arthritis Leukemia Prostate carcinoma Sibling Depression Mother Diabetes mellitus Hypertension Father Hypertension Social History Social History Smoking status: Never smoker Second hand tobacco smoke exposure: No Alcohol intake: current Alcohol use details: seldom; socially Substance use: never Substance use type: does not use Lack of Transportation: No Lack of Food: Never True Current Housing: I Have Housing Concerned About Future Housing: No Difficulty Paying Gas/Electric Bills: No Difficulty Paying for Meds: No Currently Unemployed: No Education: High School Diploma/GED Difficulty w/ Childcare or Family Care: No Spiritual care concerns: No Comments At time of signature, agree with nursing past medical, surgical, social and family history. There is no relevant family history pertinent to the presenting complaint Exam Narrative: GENERAL: Well-appearing, well-nourished, and in no acute distress. HEAD: Normocephalic EYES: PERRLA, conjunctivae clear ENT: Nares clear, sinus congestion. Mucous membranes moist. TM pearly trevizo with dull light reflex bilaterally; no tragal tenderness. Oropharynx not erythematous without lesions. Tonsils not enlarged and without exudate, no drooling, no hoarseness, no trismus, uvula midline. NECK: Supple. No lymphadenopathy CHEST: Clear to auscultation, breath sounds equal. No wheezing, rhonchi, rales, or stridor. No respiratory distress, speaks in full sentences. HEART: Regular rate and rhythm. No murmur heard. SKIN: Warm, dry, no rash. NEURO: Alert and oriented x3. No focal deficits, cranial nerves 2-12 grossly intact PSYCH: Normal mood and affect Course Course Emergency Course: Patient is aware of diagnosis, understands and agrees to treatment plan. Anticipatory guidance given. Patient agrees to follow-up as directed and is aware of reasons to seek care at the emergency department. Portions of this record may have been created with voice recognition
--- NOTE | 2024-07-02 10:17 | ECG_ITS ---
Test Date: 2024-07-02 09:49:41 Measurements Intervals [place] Rate: 68 P: 39 FL: 187 QRS: 3 QRSD: 97 T: 4 QT: 388 QTc: 415 Interpretive Statements SINUS RHYTHM NONSPECIFIC T-WAVE FLATTENING BORDERLINE ECG NO PREVIOUS TRACING AVAILABLE FOR COMPARISON Electronically Signed On 07-02-2024 12:34:53 CDT by Guanakito Weinberg M.D.
== END 2024-07-02 10:15 | disposition home or self-care (01) ==
PROVIDERS: Emergency Provider Nurse Practitioner; PCP Family Medicine
DX: J32.9 Chronic sinusitis, unspecified (principal)
CPT/HCPCS: 93005; 99213; G0463